=== PATIENT | male | born 1995 | race Caucasian/White ===

== ENCOUNTER → 2020-03-18 15:37 | Outpatient (BNVA) | payer OTHER, SELFPAY | PROVIDERS: Visit Provider Nurse Practitioner Family | DX: Z20.828 Contact with and (suspected) exposure to other viral communicable diseases (principal) | CPT/HCPCS: 87635 ==

== ENCOUNTER 2020-10-13 23:47 | Emergency (ER) | payer MEDICAID, SELFPAY ==
[2020-10-14 01:06] VITALS: BP 111/66; PULSE 88; RESP 20; TEMP 36.3; O2SAT 99; BMI 32.5
[2020-10-14 01:38] LABS: SARS Covid-2 Antigen Negative (Negative)
--- NOTE | 2020-10-14 02:39 | W.ED.NAVMDI ---
HPI - Nausea/Vomiting/Diarrhea General: Chief complaint: Nausea/Vomiting/Diarrhea Stated complaint: NAUSEA HAS HAD DIRECT CONTACT W/COVID(+) PT Time Seen by Provider: 10/14/20 02:24 History of Present Illness: HPI Narrative: Patient is a 24-year-old male comes to the ED with nausea and vomiting. Patient said he has been having symptoms like that for the past week. He endorses having a known Covid positive patient contact. He says his nausea and vomiting is mild and he does not feel nauseous or have emesis episode daily. He says it usually occurs once every couple days. He is also endorses having some right lumbar back pain. Says the pain is worse when he is moving in certain positions. He does get some relief in pain if he is resting. Here in the ED denies any current nausea. Denies any abdominal pain, chest pain, shortness of breath, bowel symptoms, dysuria or hematuria. Associated nausea: Yes Associated symtoms: Reports nausea; Denies change in vision, chest pain, dysuria, fatigue, headache(s) or palpitations Review of Systems Const: Denies: fever(s), chills or fatigue Eyes: Denies: change in vision or eye discomfort ENMT: Denies: throat pain, odynophagia, nasal discharge or nasal congestion Card: Denies: chest pain, palpitations, edema, swelling of feet/ankles, dyspnea on exertion or orthopnea Resp: Denies: dyspnea, productive cough or non-productive cough GI: Reports: nausea and vomiting; Denies: abdominal pain, diarrhea, constipation or hematochezia : Denies: flank pain, difficulty urinating, dysuria or hematuria Musc: Reports: back pain; Denies: neck pain or extremity swelling Skin/Breast: Denies: rash or new lesions Neuro: Denies: headache(s), numbness in extremities or weakness in extremities Physical Exam Const: COMMON NORMALS: no acute distress, patient oriented x3 and alert GENERAL APPEARANCE: cooperative and comfortable HENMT: COMMON NORMALS: normocephalic HEAD & SCALP: normocephalic MOUTH: Normal oral and palatal mucosa present THROAT: posterior oropharynx normal and uvula midline Eye: COMMON NORMALS: Equal, round and reactive pupils present PUPIL: Yes Equal, round and reactive pupils present Neck/C-Spine: COMMON NORMALS: supple GENERAL: Yes normal visual inspection Resp: COMMON NORMALS: normal respiratory effort, No retractions, No use of accessory muscles and clear to auscultation bilaterally AUSCULTATION: clear to auscultation bilaterally Cardio: COMMON NORMALS: regular rate, regular rhythm, S1 normal heart sound present, S2 normal heart sound present, No gallops present (Cardio), No clicks present (Cardio), No murmurs present (Cardio) and Peripheral pulses 2+ throughout RATE: regular rate RHYTHM: regular rhythm HEART SOUNDS: S1 normal heart sound present and S2 normal heart sound present PERIPHERAL PULSES: Peripheral pulses 2+ throughout GI: COMMON NORMALS: Normal to inspection, nondistended, normoactive bowel sounds present, Soft to palpation, non-tender and no masses PALPATION: Yes Soft to palpation : COMMON NORMALS: Yes no CVA tenderness BLADDER/KIDNEY EXAM: Yes no CVA tenderness Back/Pelvis: COMMON NORMALS: no CVA tenderness LUMBAR SPINE/LOWER BACK: Yes paraspinal muscle tenderness Lumbar paraspinal muscle tenderness: right Right lumbar paraspinal muscle tenderness: L3 and L4 Extremity: COMMON NORMALS: normal to inspection Neuro: COMMON NORMALS: patient oriented x3 and moves all extremities SENSORIUM/ORIENTATION: Yes alert Skin: GENERAL SKIN EXAM: dry skin Course Vital Signs: Vital signs: Vital Signs Temperature 97.3 F L 10/14/20 01:06 Pulse Rate 88 10/14/20 01:06 Respiratory Rate 20 H 10/14/20 01:06 Blood Pressure 111/66 10/14/20 01:06 Pulse Oximetry 99 10/14/20 01:06 MDM - Nausea/Vomiting/Diarrhea MDM Narrative: Medical decision making narrative: Patient is a 24-year-old male comes to the ED with nausea, vomiting and some muscular lower back pain. Here in the ED patient is not currently having any nausea. Patient appears nontoxic and is in no acute distress or pain. He has some right lumbar paraspinal muscle tenderness and the rest of exam is benign. Covid test negative. Patient was given a dose of Toradol while here in the ED and discharged home with viral syndrome and acute lumbar back pain. He was given a prescription for Zofran, methocarbamol and ibuprofen 800 mg. He was told to follow-up with PCP in 7 to 10 days for reevaluation. Return to ED precautions given. Patient understood agree with plan. Lab Data: Labs: Lab Results 10/14/20 Range/Units 01:15 SARS-CoV-2 Ag (Rap id) Negative (Negative) Discharge Plan Discharge Patient Disposition: Home Clinical Impression: Viral syndrome Acute lumbar back pain Qualifiers: Back pain laterality: right Sciatica presence: without sciatica Qualified Code(s): M54.5 - Low back pain Condition: Stable Prescriptions: New methocarbamol 750 mg tablet 750 mg PO Q8H PRN (Reason: muscle pain) Qty: 12 RF: 0 ibuprofen 800 mg tablet 800 mg PO Q8H PRN (Reason: pain) Qty: 20 RF: 0 Zofran 4 mg tablet 4 mg PO Q8H PRN (Reason: nausea and vomiting) Qty: 15 RF: 0 Discharge Orders: Discharge ED (Routine); Ordered 10/14/20 Ordered By: Juan C Andrade Discharge Diet: Regular Discharge Activity: Resume usual activity Patient Instructions: Viral Syndrome (ED), Back Pain (ED) Activity Restrictions/Additional Instructions: Follow-up with medical provider as directed in 7 to 10 days for reevaluation. Take medications as prescribed. Return to the ER or your medical provider if condition worsens. Please read and understand discharge instructions. Thank you for choosing [facility] for your healthcare needs today. Please realize this is an emergency room and that we are providing you with a medical screening exam and this may not be complete and all inclusive of all the testing and or work up that you may need to determine your ailment or severity of your illness. It is very important that you follow up as instructed or that you return to the Emergency Department should you have concerns or if your condition changes or worsens in any way. Coding Level of Care Code ED Filter [employer] for Ning Orr Exam Comprehensive
[2020-10-14] MEDS: ketorolac 60 mg/2 mL INJ IM (03:31)
[2020-10-14 03:35] VITALS: BP 135/97; PULSE 89; RESP 16; O2SAT 98
== END 2020-10-14 03:40 | disposition home or self-care (01) ==
PROVIDERS: Emergency Medicine; Emergency Provider Physician Assistant
DX: B34.9 Viral infection, unspecified (principal); M54.5 Low back pain
CPT/HCPCS: 87426; 96372; 99283; J1885